=== PATIENT | male | born 1985 | race Caucasian/White ===

== ENCOUNTER → 2024-12-07 | Outpatient (CLI) | payer OTHER, SELFPAY ==
[2024-12-07 12:41] LABS: Absolute Lymphocyte Count 3.31 X10^3/uL (0.83-4.51); Basophil# 0.13 X10^3/uL; Basophil% 1.2 % (0-1); Eosinophil# 0.08 X10^3/uL; Eosinophils% 0.8 % (0-5); Hematocrit 45.8 % (40-54); Hemoglobin 15.8 g/dL (13.0-16.5); Lymphocyte # 3.31 X10^3/ul (0.83-4.51); Lymphocyte % 31.4 % (19-41); Mean Corp Hgb Conc 34.5 g/dL (32-36); Mean Corpuscular Hgb 30.6 pg (27.0-32.0); Mean Corpuscular Volume 88.8 fL (80-94); Mean Platelet Vol. 10.7 fl (6.2-12.0); Monocyte# 0.86 X10^3/uL; Monocyte% 8.2 % (0-10); NRBC Flagged by Analyzer 0 % (0-5); Neutrophil # 5.97 X10^3/uL (2.7-7.7); Neutrophil % 56.7 % (47-70); Platelet Count 391 K/mm3 (150-450); RBC Distribution Width CV 12.1 % (11.6-14.6); RBC Distribution Width SD 39.8 fl (35.1-43.9); Red Blood Count 5.16 M/mm3 (4.6-6.2); White Blood Count 10.5 K/mm3 (4.4-11.0)
[2024-12-07 16:25] LABS: FOLATES,SERUM (FOLIC ACID) 5.45 ng/mL (4.60-34.80)
[2024-12-08 00:09] LABS: ALB/GLOB Ratio 1.5 RATIO (0.9-2.4); AST(SGOT) 25 U/L (<=37); Alanine Aminotransfer ALT/SGPT 35 U/L (<=46); Albumin, Serum 4.4 g/dL (3.5-5.0); Alkaline Phosphatase 64 U/L (40-129); Anion Gap 14 (5-15); BUN 15 mg/dL (4-19); BUN/Creat Ratio 17.5 RATIO (10-20); Calcium,Total 9.6 mg/dL (7.6-11.0); Carbon Dioxide 22.3 mmol/L (21.0-32.0); Chloride 103 mmol/L (98-108); Creatinine, Serum 0.87 mg/dL (0.70-1.20); EST Glomerular Filtration Rate 111 (>60); Glucose 96 mg/dL (70-99); HIV Nonreactive (Nonreactive); Magnesium 2.2 mg/dL (1.5-2.2); Potassium 4.2 mmol/L (3.3-5.1); Protein, Total 7.4 g/dL (5.9-8.4); Sodium Level 140 mmol/L (133-145); Total Bilirubin 0.38 mg/dL (0.00-1.30); Vitamin B12 590 pg/mL (180-914)
[2024-12-08 01:13] LABS: Cholesterol 171 mg/dL (<=200); High Density Lipoprotein 41 mg/dL; Low Density Lipoprotein Calc. 117 mg/dL; Triglycerides 63 mg/dL; Very Low Density Lipoprotein 13 mg/dL (5-40); cholesterol:hdl ratio screen 4.16
[2024-12-16 11:08] LABS: Testosterone, % Free 2.33 % (1.50-4.20); Testosterone, Free 10.09 ng/dL (5.00-21.00); Testosterone, Total 433 ng/dL (264-916)
== END | disposition home or self-care (01) ==
PROVIDERS: Referring Provider Psychiatry & Neurology Neurology; Visit Provider Psychiatry & Neurology Neurology
DX: Z00.00 Encounter for general adult medical examination without abnormal findings (principal); G44.209 Tension-type headache, unspecified, not intractable; G47.10 Hypersomnia, unspecified; R25.2 Cramp and spasm; R53.83 Other fatigue; Z13.29 Encounter for screening for other suspected endocrine disorder; Z13.21 Encounter for screening for nutritional disorder; Z13.228 Encounter for screening for other metabolic disorders; Z13.0 Encounter for screening for diseases of the blood and blood-forming organs and certain disorders involving the immune mechanism; Z12.5 Encounter for screening for malignant neoplasm of prostate; Z11.4 Encounter for screening for human immunodeficiency virus [HIV]
CPT/HCPCS: 36415; 80053; 80061; 82607; 82746; 83735; 84153; 84402; 84403; 84439; 84443; 85025; 86703; G0103

== ENCOUNTER → 2024-12-07 | Outpatient (CLI) | payer OTHER, SELFPAY | END | disposition home or self-care (01) | LOC: SL 10:13 | PROVIDERS: Referring Provider Psychiatry & Neurology Neurology; Visit Provider Psychiatry & Neurology Neurology | DX: G47.10 Hypersomnia, unspecified (principal) | CPT/HCPCS: 95806 ==

== ENCOUNTER → 2025-01-01 | Outpatient (CLI) | payer OTHER, SELFPAY ==
--- NOTE | 2025-01-01 07:08 | MRI_ITS ---
PROCEDURE: BRAIN W/WO CONTRAST 01/01/2025 REASON FOR EXAM: TENSION HEADACHES; LEFT TEMPORAL ARACHNOID CYST TECHNIQUE: Routine brain MRI without and with intravenous contrast. Multiplanar and multisequence images were obtained. CONTRAST: 19 mL Clariscan IV COMPARISON: None FINDINGS: Brain: 7.0 x 4.1 x 4.7 cm left middle fossa arachnoid cyst with mass effect on the temporal lobe. No associated cerebral edema. Corpus callosum, sella, and cerebellar vermis appear normal. Normal signal intensities. The globes appear normal. Diffusion: No restricted diffusion. Ventricles: Normal. Major Intracranial Vessels: Maintained flow voids. Sinuses: Clear. Mastoids: Clear. No abnormal contrast enhancement. MRI/Brain W/WO Contrast IMPRESSION: Left middle fossa arachnoid cyst measures up to 7 cm, and causes mass effect on the left temporal lobe. There is no associated cerebral edema or restricted diffusion. Reading [facility]
== END | disposition home or self-care (01) ==
PROVIDERS: Referring Provider Psychiatry & Neurology Neurology; Visit Provider Psychiatry & Neurology Neurology
DX: G44.209 Tension-type headache, unspecified, not intractable (principal); G93.0 Cerebral cysts
CPT/HCPCS: 70553; A9575

== ENCOUNTER → 2025-05-13 | Outpatient (CLI) | payer OTHER, SELFPAY | END | disposition home or self-care (01) | LOC: SL 09:52 | PROVIDERS: Referring Provider Nurse Practitioner Family; Visit Provider Nurse Practitioner Family | DX: G47.33 Obstructive sleep apnea (adult) (pediatric) (principal) | CPT/HCPCS: 98960; G0463 ==